=== PATIENT | female | born 1950 | race Caucasian/White ===

== ENCOUNTER → 2025-05-25 11:36 | Outpatient (CLI) | payer MEDICARE, SELFPAY ==
--- NOTE | 2025-05-25 11:41 | DI.RAD.S_ITS ---
PROCEDURE: XR DEXA AXIAL SKELETON INDICATIONS: Compression fracture of thoracic vertebra COMPARISON: None. FINDINGS: Lumbar Spine (L2 excluded due to increased density): Bone mineral density 1.363 g/cm2, T score 2.6, normal. Left Femoral Neck: Bone mineral density 0.934 g/cm2, T score 0.8. Left Hip: Bone mineral density 1.075 g/cm2, T score 1.1, normal. Fracture Risk Calculation (when applicable): Not reported due to normal bone mineralization. (T score greater or equal to -1.0 to: NORMAL) (T score from -1.1 to -2.4: OSTEOPENIA) (T score less than or equal to -2.5: OSTEOPOROSIS) IMPRESSION: Normal bone mineralization. Follow-up guidelines as follows: Osteoporosis: Consider a repeat DEXA and Vertebral Fracture Assessment (VFA) exam in 2 years or sooner if medically necessary, to reassess this patient's status. Osteopenia: Consider a repeat DEXA in 2-3 years to reassess this patient's status, or if there is a new clinical indication. Normal: Consider a repeat DEXA in 5 years or sooner, or if there is a new clinical indication. All treatment decisions require clinical judgment and consideration of individual patient factors, including patient preferences, comorbidities, previous drug use, risk factors not captured in the FRAX model (e.g., frailty, falls, vitamin D deficiency, increased bone turnover, interval significant decline in bone density ) and possible under- or over-estimation of fracture risk by FRAX. In addition, the [employer] Guide recommends that FDA-approved medical therapies be considered in postmenopausal women and men age >= 50 years with a: * Hip or vertebral (clinical or morphometric) fracture * T-score of <=-2.5 at the spine or hip * Ten-year fracture probability by FRAX of >= 3% for hip fracture or >=20% for major osteoporotic fracture. Dictated by: Maximiliano Guillen M.D. on 05/25/2025 at 22:00 Approved by: Maximiliano Guillen M.D. on 05/25/2025 at 22:01
== END ==
LOC: RAD 11:41
PROVIDERS: PCP Nurse Practitioner Acute Care; Referring Provider Nurse Practitioner; Visit Provider Nurse Practitioner
DX: S22.000A Wedge compression fracture of unspecified thoracic vertebra, initial encounter for closed fracture (principal)
CPT/HCPCS: 77080